=== PATIENT | male | born 1965 | race African-American/Black ===

== ENCOUNTER 2017-07-25 15:33 | Emergency (ER) | payer BC, OTHER ==
[2017-07-25 15:38] VITALS: BP 165/82; PULSE 87; RESP 12; TEMP 98.7; O2SAT 96
[2017-07-25 17:56] LABS: BACTERIA, URINE MOD /hpf; BILIRUBIN, URINE NEG (NEG); BLOOD, URINE NEG (NEG); GLUCOSE,URINE NEG (NEG); KETONE, URINE NEG (NEG); MUCUS URINE FEW /lpf (OCC); NITRITE,URINE NEG (NEG); PH, URINE 6.5 (5.0-8.5); SQUAMOUS EPITHELIAL CELL URINE <1 /hpf (0-5); URINE COLOR YELLOW (YELLW/STRAW); URINE LEUKOCYTE ESTERASE LARGE (NEG); WHITE BLOOD CELL CLUMPS RARE
[2017-07-25] MEDS ORDERED: TAMS5CAP PO (18:55)
[2017-07-25] MEDS ORDERED: CIPR-9 PO (18:55)
--- NOTE | 2017-07-25 18:57 | PD ---
HPI Chief Complaint: Complaint Time Seen by Provider: 18:24 Travel History International Travel<30 days: No Contact w/Intl Traveler<30days: No Traveled to known affect area: No History of Present Illness HPI 52-year-old male patient presents emergency department for evaluation of urinary hesitancy. Patient states the symptoms have been persistent for a couple months. Patient states when he drinks water the symptoms are significantly decreased wall when he drinks soda that exacerbates the symptoms. Patient denies any burning, discharge, fevers, chills, flank pain. Patient denies any hematuria. Patient doesn't have a primary care at this time but in the past he has been treated for BPH. Patient denies any pain or other physiological complaints at this time. PFSH Past Surgical History Abdominal Surgery: Yes (HERNIA) Social History Alcohol Use: No Tobacco Use: No Substance Use: No Allergies-Medications (Allergen,Severity, Reaction): Coded Allergies: No Known Allergies (Unverified Adverse Reaction, Unknown, 07/25/17) Reported Meds & Prescriptions Reported Meds & Active Scripts Active Cipro (Ciprofloxacin HCl) 500 Mg Tab 500 Mg PO BID 7 Days Flomax (Tamsulosin HCl) 0.4 Mg Cap 0.4 Mg PO HS Review of Systems Except as stated in HPI: all other systems reviewed are Neg Physical Exam Narrative GENERAL: Well-nourished, well-developed 52-year-old male patient in no acute distress. Nontoxic appearing. SKIN: Focused skin assessment warm/dry. HEAD: Normocephalic. Traumatic. EYES: No scleral icterus. No injection or drainage. NECK: Supple, trachea midline. No JVD or lymphadenopathy. CARDIOVASCULAR: Regular rate and rhythm without murmurs, gallops, or rubs. RESPIRATORY: Breath sounds equal bilaterally. No accessory muscle use. GASTROINTESTINAL: Abdomen soft, non-tender, nondistended. BACK: Nontender without obvious deformity. No CVA tenderness. Data Data Last Documented VS Vital Signs Date Time Temp Pulse Resp B/P (MAP) Pulse Ox O2 Delivery O2 Flow Rate FiO2 07/25/17 19:19 07/25/17 15:38 98.7 87 12 96 Orders Orders Urinalysis - C+S If Indicated (07/25/17 15:42) Urine Culture (07/25/17 16:10) Ed Discharge Order (07/25/17 18:57) Labs Laboratory Tests Test 07/25/17 16:10 Urine Color YELLOW Urine Turbidity HAZY Urine pH 6.5 Urine Specific [place] 1.025 Urine Protein TRACE mg/dL Urine Glucose (UA) NEG mg/dL Urine Ketones NEG mg/dL Urine Occult Blood NEG Urine Nitrite NEG Urine Bilirubin NEG Urine Urobilinogen 8.0 MG/DL Urine Leukocyte Esterase LARGE Urine RBC 6 /hpf Urine WBC 59 /hpf Urine WBC Clumps RARE Urine Squamous Epithelial Cells <1 /hpf Urine Bacteria MOD /hpf Urine Mucus FEW /lpf Microscopic Urinalysis Comment CULTURE INDICATED MDM Medical Decision Making Medical Screen Exam Complete: Yes Emergency Medical Condition: Yes Differential Diagnosis Differential diagnoses include but not limited to acute urinary retention, stricture of the urethra, BPH, UTI Narrative Course UA is positive for urinary tract infection with large amounts of WBCs, bacteria and esterase. Patient assessed and abdomen flat, soft and nontender. There is no signs of acute bladder retention at this time. Patient states he has cut out soda which is significantly decreased the urinary hesitancy. Patient is treated with Cipro for urinary tract infection. Patient is instructed that medication is free at [facility]. Patient discharged home with instructions to return the emergency Department with any worsening condition but otherwise avoid soda and drink plenty of water, urinate when the urge presents, try not to hold the urine which increases the risk for UTI. Laboratory Tests Test 07/25/17 16:10 Urine Color YELLOW Urine Turbidity HAZY Urine pH 6.5 Urine Specific [place] 1.025 Urine Protein TRACE mg/dL Urine Glucose (UA) NEG mg/dL Urine Ketones NEG mg/dL Urine Occult Blood NEG Urine Nitrite NEG Urine Bilirubin NEG Urine Urobilinogen 8.0 MG/DL Urine Leukocyte Esterase LARGE Urine RBC 6 /hpf Urine WBC 59 /hpf Urine WBC Clumps RARE Urine Squamous Epithelial Cells <1 /hpf Urine Bacteria MOD /hpf Urine Mucus FEW /lpf Microscopic Urinalysis Comment CULTURE INDICATED Diagnosis Primary Impression: UTI (urinary tract infection) Qualified Codes: N39.0 - Urinary tract infection, site not specified; R31.9 - Hematuria, unspecified Referrals: Primary Care Physician Urologist Patient Instructions: Benign Prostatic Hypertrophy (DC), General Instructions, Urinary Tract Infection in Men (ED) Additional Instructions: Please return to emergency department if your symptoms return or worsen. Follow up with your primary care provider. Follow-up with urologist Take medications as prescribed. Stay hydrated, drink enough water. Alternate ibuprofen and Tylenol as stated for pain or fevers. Med/Other Pt SpecificInfo: Prescription(s) given Scripts Ciprofloxacin (Cipro) 500 Mg Tab 500 MG PO BID for Infection for 7 Days, #14 TAB 0 Refills Prov: Jeanine Esteban 07/25/17 Tamsulosin (Flomax) 0.4 Mg Cap 0.4 MG PO HS for Manage Prostate Problems, #30 CAP 0 Refills Prov: Jeanine Esteban 07/25/17 Disposition: 01 DISCHARGE HOME Condition: Stable Jeanine Esteban Jul 25, 2017 18:57
== END 2017-07-25 19:24 | disposition home or self-care (01) ==
LOC: NEPK 15:33
DX: N39.0 Urinary tract infection, site not specified (principal); R31.9 Hematuria, unspecified
CPT/HCPCS: 81001; 86403; 87086; 99284

== ENCOUNTER 2017-08-12 08:22 | Observation (INO) | payer OTHER ==
[~2017-08-12] VITALS: Ht 177.8 cm; Wt 87.0 kg
[~2017-08-12 08:22] MED LIST: CIPR-9 PO; TAMS5CAP PO
[2017-08-12 08:29] VITALS: BP 164/80; PULSE 102; RESP 17; TEMP 98.2; O2SAT 100
--- NOTE | 2017-08-12 09:12 | PD ---
HPI Chief Complaint: Complaint Time Seen by Provider: 08:51 Travel History International Travel<30 days: No Contact w/Intl Traveler<30days: No Traveled to known affect area: No History of Present Illness HPI This is a 52-year-old male who reports a history of BPH. He is complaining of urinary hesitancy. He reports that he had this issue 2-3 years ago and it eventually improved. He reports that his symptoms have gradually started back up over the past 3-4 months. He was prescribed ciprofloxacin on July 25 for urinary tract infection. He was also prescribed Flomax which he started 3 days ago. He continues to have urinary hesitancy and this is what prompted evaluation. He was hoping that he could be prescribed a "stronger" medication for this symptom. Denies urethral discharge, dysuria, abdominal pain, flank pain, fevers, chills. He is sexually active with one partner. He has no other complaints at this time. PFSH Past Surgical History Abdominal Surgery: Yes (HERNIA) Social History Alcohol Use: No Tobacco Use: No Substance Use: No Allergies-Medications (Allergen,Severity, Reaction): Coded Allergies: No Known Allergies (Unverified Adverse Reaction, Unknown, 08/12/17) Reported Meds & Prescriptions Reported Meds & Active Scripts Active Hydrochlorothiazide 25 Mg Tab 25 Mg PO DAILY Flomax (Tamsulosin HCl) 0.4 Mg Cap 0.4 Mg PO HS Cipro (Ciprofloxacin HCl) 500 Mg Tab 500 Mg PO BID 7 Days Review of Systems Except as stated in HPI: all other systems reviewed are Neg Physical Exam Narrative GENERAL: Well-developed well-nourished male in no acute distress SKIN: Warm and dry. HEAD: Atraumatic. Normocephalic. EYES: Pupils equal and round. No scleral icterus. No injection or drainage. ENT: No nasal bleeding or discharge. Mucous membranes pink and moist. NECK: Trachea midline. No JVD. CARDIOVASCULAR: Regular rate and rhythm. No murmur appreciated. RESPIRATORY: No accessory muscle use. Clear to auscultation. Breath sounds equal bilaterally. GASTROINTESTINAL: Abdomen soft, non-tender, nondistended. Hepatic and splenic margins not palpable. Rectal examination reveals no obvious abnormality of the prostate, no prostate tenderness. MUSCULOSKELETAL: No obvious deformities. No clubbing. No cyanosis. No edema. NEUROLOGICAL: Awake and alert. No obvious cranial nerve deficits. Motor grossly within normal limits. Normal speech. PSYCHIATRIC: Appropriate mood and affect; insight and judgment normal. Data Data Last Documented VS Vital Signs Date Time Temp Pulse Resp B/P (MAP) Pulse Ox O2 Delivery O2 Flow Rate FiO2 08/12/17 12:05 72 18 152/79 (103) 100 Room Air 08/12/17 08:29 98.2 Orders Orders Urinalysis - C+S If Indicated (08/12/17 09:05) Morphine Inj (Morphine Inj) (08/12/17 10:45) Ondansetron Inj (Zofran Inj) (08/12/17 10:45) Lidocaine 2% Jelly (Xylocaine 2% Jelly) (08/12/17 10:45) Lidocaine 2% Jelly (Xylocaine 2% Jelly) (08/12/17 10:45) Morphine Inj (Morphine Inj) (08/12/17 10:45) Morphine Inj (Morphine Inj) (08/12/17 10:43) Morphine Inj (Morphine Inj) (08/12/17 10:45) Complete Blood Count With Diff (08/12/17 12:20) Basic Metabolic Panel (Bmp) (08/12/17 12:20) Act Partial Throm Time (Ptt) (08/12/17 12:20) Prothrombin Time / Inr (Pt) (08/12/17 12:20) Diet Npo (08/12/17 Lunch) Consent (08/12/17 12:26) Electrocardiogram (08/12/17 ) Consult Urology (08/12/17 ) Place In Observation (08/12/17 ) Admit Order (Ed Use Only) (08/12/17 13:03) Code Status (08/12/17 13:02) Vital Signs (Adult) Q4H (08/12/17 13:02) Activity Oob With Assistance (08/12/17 13:02) Sodium Chloride 0.9% Flush (Ns Flush) (08/12/17 13:15) Sodium Chloride 0.9% Flush (Ns Flush) (08/12/17 21:00) Acetaminophen (Tylenol) (08/12/17 13:15) Ondansetron Inj (Zofran Inj) (08/12/17 13:15) Comprehensive Metabolic Panel (08/13/17 06:00) Complete Blood Count With Diff (08/13/17 06:00) Scd Bilateral/Knee High CARRIE.BID (08/12/17 13:02) Acetaminophen (Tylenol) (08/12/17 13:15) Naloxone Inj (Narcan Inj) (08/12/17 13:15) Magnesium Hydroxide Liq (Milk Of Magnesi (08/12/17 13:15) Enalaprilat Inj (Vasotec Inj) (08/12/17 13:15) Lipid Profile (08/13/17 06:00) Hemoglobin (Hgb) A1c (08/13/17 06:00) Labs Laboratory Tests Test 08/12/17 12:55 Urine Color YELLOW Urine Turbidity CLEAR Urine pH 6.5 Urine Specific [place] 1.009 Urine Protein NEG mg/dL Urine Glucose (UA) NEG mg/dL Urine Ketones NEG mg/dL Urine Occult Blood TRACE Urine Nitrite NEG Urine Bilirubin NEG Urine Urobilinogen LESS THAN 2.0 MG/DL Urine Leukocyte Esterase NEG Urine RBC 3 /hpf Urine WBC 4 /hpf Urine Squamous Epithelial Cells <1 /hpf Urine Bacteria RARE /hpf Urine Mucus FEW /lpf Microscopic Urinalysis Comment CULT NOT INDICATED MDM Medical Decision Making Medical Screen Exam Complete: Yes Emergency Medical Condition: Yes Medical Record Reviewed: Yes Differential Diagnosis BPH, malignancy, cystitis, prostatitis, urethral stricture Narrative Course I have reviewed this patient's records. He had similar symptoms in July 2014 and at that time he was found to have a urethral stricture which made fully catheter placement very difficult requiring urology consultation. Although this patient self reports a history of BPH, he reports minimal improvement in his urinary hesitancy over the past few days with Flomax. I'm concerned that there may be some other anatomic abnormality such as stricture contributing to his symptoms. The patient spent 2 hours in the ED with inability to urinate. He then became increasingly uncomfortable and consented to fully catheter placement. The patient was given 8 mg of morphine and copious amounts of lidocaine jelly was used. A 14 [place] coud catheter was utilized by the nurse and was unsuccessful and the patient had significant amount of pain during the procedure. Bladder scan reveals 800 mL of urine. I discussed with Dr. Hickey the urologist on-call who evaluated the patient at bedside and unfortunately the patient feels too uncomfortable to attempt a bedside Yang catheter placement again. Therefore Dr. Hickey plans on taking the patient to the OR this evening. The patient will be admitted for observation. 1600: Notified of the patient is now urinating with a post void residual of [address] Hickey spoke to Dr. Machado and has cleared the patient for discharge and would like him to follow up as an outpatient. I informed Dr. Adams who will discharge the patient. A mandatory outpatient referral has been placed for urology follow-up. Diagnosis Primary Impression: Acute urinary retention Admitting Information Admitting Physician Requests: Observation Referrals: Rick Hickey MD 3 days Scripts Hydrochlorothiazide (Hydrochlorothiazide) 25 Mg Tab 25 MG PO DAILY for Blood Pressure Management, #30 TAB 11 Refills Prov: Ryland Adams MD 08/12/17 Tamsulosin (Flomax) 0.4 Mg Cap 0.4 MG PO HS for Manage Prostate Problems, #30 CAP 11 Refills Prov: Ryland Adams MD 08/12/17 Roldan Reeder Aug 12, 2017 09:12
[2017-08-12] MEDS ORDERED: MORPHINE SULFATE 8 MG/ML INJ ONE (10:43)
[2017-08-12] MEDS ORDERED: MORPHINE SULFATE 2 MG/ML INJ IV PUSH ONE ×3 (10:45)
[2017-08-12] MEDS ORDERED: LIDOCAINE 2% JELLY 5 ML TUBE TOPICAL ONE (10:45)
[2017-08-12] MEDS ORDERED: ONDANSETRON HCL 4 MG/2 ML VIAL IV PUSH ONE (10:45)
[2017-08-12] MEDS ORDERED: LIDOCAINE 2% JELLY 30 ML TUBE TOPICAL ONE (10:45)
[2017-08-12 12:05] VITALS: BP 152/79; PULSE 72; RESP 18; O2SAT 100
--- NOTE | 2017-08-12 12:26 | PD.CONS ---
[facility] Service Urology Consult Requested By Reason for Consult Urinary retention, h/o urethral stricture. Primary Care Physician No Primary Care Physician Diagnosis: History of Present Illness 52 yo male h/o BPH, urethral stricture presents with lower abdominal pain, dribbling, inability to empty his bladder. He was able to void a small amount this morning but he still "feels full". He has progressively voided small amounts over past several days. PVR 718 ml. A similar situation happened to him [address] Hairston to dilate a stricture, pass a catheter at the bedside. He has not had any issues up until recently. He has been on Flomax in the past. Denies fevers, chills, nausea, vomiting, flank pain. Denies h/o kidney stones. Several attempts were made to pass a catheter in ER but unsuccessful. Review of Systems Gastrointestinal: COMPLAINS OF: Abdominal pain Genitourinary: COMPLAINS OF: Urinary incontinence Except as stated in HPI: all other systems reviewed are Neg Past Family Social History Past Medical History BPH Past Surgical History urethral dilation Reported Medications Flomax Allergies: Coded Allergies: No Known Allergies (Unverified Adverse Reaction, Unknown, 08/12/17) Family History Denies urolithiasis, malignancies. Social History Denies tobacco, alcohol, illicit drugs Physical Exam Vital Signs Date Time Temp Pulse Resp B/P (MAP) Pulse Ox O2 Delivery O2 Flow Rate FiO2 08/12/17 08:29 98.2 102 17 164/80 (108) 100 Physical Exam GENERAL: This is a well-nourished, well-developed patient, in no apparent distress. SKIN: No rashes, ecchymoses or lesions. Cool and dry. HEAD: Atraumatic. Normocephalic. No temporal or scalp tenderness. EYES: Pupils equal round and reactive. Extraocular motions intact. No scleral icterus. No injection or drainage. ENT: Nose without bleeding, purulent drainage or septal hematoma. Throat without erythema, tonsillar hypertrophy or exudate. Uvula midline. Airway patent. NECK: Trachea midline. No JVD or lymphadenopathy. Supple, nontender, no meningeal signs. CARDIOVASCULAR: Regular rate and rhythm without murmurs, gallops, or rubs. RESPIRATORY: Clear to auscultation. Breath sounds equal bilaterally. No wheezes , rales, or rhonchi. GASTROINTESTINAL: Abdomen soft, non-tender, nondistended. No hepato-splenomegaly , or palpable masses. No guarding. GENITOURINARY: phallus, circumcised, testes descended bilaterally without mass MUSCULOSKELETAL: Extremities without clubbing, cyanosis, or edema. No joint tenderness, effusion, or edema noted. No calf tenderness. Negative Homans sign bilaterally. NEUROLOGICAL: Awake and alert. Cranial nerves II through XII intact. Motor and sensory grossly within normal limits. Five out of 5 muscle strength in all muscle groups. Normal speech. Assessment and Plan Assessment and Plan 52 yo male h/o BPH, urethral stricture presents with acute onset of urinary retention. -Planned to placed catheter, possible urethral dilation at bedside. However, patient adamantly refused due to how painful it was last time. He wishes to be placed under a General Anesthetic. -Keep NPO Rick Hickey MD Aug 12, 2017 12:26
[2017-08-12 13:11] LABS: BACTERIA, URINE RARE /hpf; BILIRUBIN, URINE NEG (NEG); BLOOD, URINE TRACE (NEG); GLUCOSE,URINE NEG (NEG); KETONE, URINE NEG (NEG); MUCUS URINE FEW /lpf (OCC); NITRITE,URINE NEG (NEG); PH, URINE 6.5 (5.0-8.5); SQUAMOUS EPITHELIAL CELL URINE <1 /hpf (0-5); URINE COLOR YELLOW (YELLW/STRAW); URINE LEUKOCYTE ESTERASE NEG (NEG)
[2017-08-12] MEDS ORDERED: SODIUM CHLORIDE 0.9% FLUSH 10 ML FLUSH IV FLUSH PRN (13:15)
[2017-08-12] MEDS ORDERED: NALOXONE HCL 0.4 MG/ML AMP IV PUSH PRN (13:15)
[2017-08-12] MEDS ORDERED: ONDANSETRON HCL 4 MG/2 ML VIAL IVP PRN (13:15)
[2017-08-12] MEDS ORDERED: ENALAPRILAT 2.5 MG/2 ML VIAL IV PUSH PRN (13:15)
[2017-08-12] MEDS ORDERED: ACETAMINOPHEN 325 MG TAB PO PRN ×2 (13:15)
[2017-08-12] MEDS ORDERED: MAGNESIUM HYDROXIDE SUSP 30 ML CUP PO PRN (13:15)
--- NOTE | 2017-08-12 13:34 | HHI.HP ---
[facility] Service [facility] Primary Care Physician No Primary Care Physician Admission Diagnosis urinary retention Diagnoses: (1) Acute urinary retention (2) Stricture of urethra Chief Complaint: Urinary retention Travel History International Travel<30 Days: No Contact w/Intl Traveler <30 Da: No Traveled to Known Affected Are: No History of Present Illness 52 year-old -[place] male with a history of BPH, urethral stricture presented to the ED for evaluation of acute urinary retention 4 days. Patient states, he has been voiding at least 8 times over the past 4 days however in very small amounts. Reports some pelvic pressure however denies any gross hematuria. This is a recurrent problem for patient, as he was seen back in the ED on 08/12/14 for urinary retention during which time patient underwent dilatation and placement of Yang at bedside by urology. However, this time around patient is requesting to be taking in the OR for any Yang placement by urology. He has been off his Flomax over the past 2 years. He has no other issues Review of Systems Except as stated in HPI: all other systems reviewed are Neg Past Family Social History Past Medical History BPH Past Surgical History Hernia repair Pyloric stenosis repair as an Reported Medications Patient has been off Flomax over the past 2 years Allergies: Coded Allergies: No Known Allergies (Unverified Adverse Reaction, Unknown, 08/12/17) Family History History positive for hypertension, diabetes type 2 Social History Patient denies tobacco, alcohol or illicit drug intake Physical Exam Vital Signs Vital Signs Date Time Temp Pulse Resp B/P (MAP) Pulse Ox O2 Delivery O2 Flow Rate FiO2 08/12/17 08:29 98.2 102 17 164/80 (108) 100 Physical Exam GENERAL: This is a well-nourished, well-developed patient, in no apparent distress. SKIN: No rashes, ecchymoses or lesions. Cool and dry. HEAD: Atraumatic. Normocephalic. No temporal or scalp tenderness. EYES: Pupils equal round and reactive. Extraocular motions intact. No scleral icterus. No injection or drainage. ENT: Nose without bleeding, purulent drainage or septal hematoma. Throat without erythema, tonsillar hypertrophy or exudate. Uvula midline. Airway patent. NECK: Trachea midline. No JVD or lymphadenopathy. Supple, nontender, no meningeal signs. CARDIOVASCULAR: Regular rate and rhythm without murmurs, gallops, or rubs. RESPIRATORY: Clear to auscultation. Breath sounds equal bilaterally. No wheezes , rales, or rhonchi. GASTROINTESTINAL: Abdomen soft, non-tender, nondistended. No hepato-splenomegaly , or palpable masses. No guarding. MUSCULOSKELETAL: Extremities without clubbing, cyanosis, or edema. No joint tenderness, effusion, or edema noted. No calf tenderness. Negative Homans sign bilaterally. NEUROLOGICAL: Awake and alert. Cranial nerves II through XII intact. Motor and sensory grossly within normal limits. Five out of 5 muscle strength in all muscle groups. Normal speech. Laboratory Laboratory Tests Test 08/12/17 12:55 Urine Color YELLOW Urine Turbidity CLEAR Urine pH 6.5 Urine Specific [place] 1.009 Urine Protein NEG Urine Glucose (UA) NEG Urine Ketones NEG Urine Occult Blood TRACE Urine Nitrite NEG Urine Bilirubin NEG Urine Urobilinogen LESS THAN 2.0 Urine Leukocyte Esterase NEG Urine RBC 3 Urine WBC 4 Urine Squamous Epithelial Cells <1 Urine Bacteria RARE Urine Mucus FEW Microscopic Urinalysis Comment CULT NOT INDICATED Septic Shock Reassessment Septic shock perfusion: reassessment completed Caprini VTE Risk Assessment Caprini VTE Risk Assessment: No/Low Risk (score <= 1) Caprini Risk Assessment Model Point Value = 1 Point Value = 2 Point Value = 3 Point Value = 5 Age 41-60 Minor surgery BMI > 25 kg/m2 Swollen legs Varicose veins or History of unexplained or recurrent spontaneous Oral contraceptives or hormone replacement Sepsis (< 1 month) Serious lung disease, including pneumonia (< 1 month) Abnormal pulmonary function Acute myocardial infarction Congestive heart failure (< 1 month) History of inflammatory bowel disease Medical patient at bed rest Age 61-74 Arthroscopic surgery Major open surgery (> 45 min) Laparoscopic surgery (> 45 min) Malignancy Confined to bed (> 72 hours) Immobilizing plaster cast Central venous access Age >= 75 History of VTE Family history of VTE Factor V Leiden Prothrombin [id number] Lupus anticoagulant Anticardiolipin antibodies Elevated serum homocysteine Heparin-induced thrombocytopenia Other congenital or acquired thrombophilia Stroke (< 1 month) Elective arthroplasty Hip, pelvis, or leg fracture Acute spinal cord injury (< 1 month) Prophylaxis Regimen Total Risk Factor Score Risk Level Prophylaxis Regimen 0-1 Low Early ambulation 2 Moderate Order ONE of the following: *Sequential Compression Device (SCD) *Heparin 5000 units SQ BID 3-4 Higher Order ONE of the following medications: *Heparin 5000 units SQ TID *Enoxaparin/Lovenox 40 mg SQ daily (WT < 150 kg, CrCl > 30 mL/min) *Enoxaparin/Lovenox 30 mg SQ daily (WT < 150 kg, CrCl > 10-29 mL/min) *Enoxaparin/Lovenox 30 mg SQ BID (WT < 150 kg, CrCl > 30 mL/min) AND/OR *Sequential Compression Device (SCD) 5 or more Highest Order ONE of the following medications: *Heparin 5000 units SQ TID (Preferred with Epidurals) *Enoxaparin/Lovenox 40 mg SQ daily (WT < 150 kg, CrCl > 30 mL/min) *Enoxaparin/Lovenox 30 mg SQ daily (WT < 150 kg, CrCl > 10-29 mL/min) *Enoxaparin/Lovenox 30 mg SQ BID (WT < 150 kg, CrCl > 30 mL/min) AND *Sequential Compression Device (SCD) Assessment and Plan Problem List: (1) Acute urinary retention ICD Code: R33.8 - Acute urinary retention Status: Resolved (2) Stricture of urethra ICD Code: N35.9 - Stricture of urethra Status: Chronic Assessment and Plan 52-year-old man with Acute urinary retention Strictures or urethra Appreciate input from urology and plan for +/-cystoscopy with dilatation and placement of Yang in the OR today Currently nothing by mouth UA pending Patient will need a prescription for Flomax on discharge Elevated BP Undiagnosed hypertension? Start patient on Hydrochlorothiazide 5 mg daily pending BMP Check lipid profile, hemoglobin A1c and treat accordingly DVT prophylaxis: Low risk for VTE, encourage ambulation Likely discharge in a.m. Code Status Full code Discussed Condition With Patient, ED Ryland Lovelace MD Aug 12, 2017 13:33
[2017-08-12 14:21] LABS: AUTOMATED NEUTROPHIL # 4.2 TH/MM3 (1.8-7.7); BASOPHIL % 0.7 % (0.0-2.0); EOSINOPHIL % 0.2 % (0.0-4.0); HEMATOCRIT 37.6 % (39.0-51.0); LYMPH % 14.5 % (9.0-44.0); LYMPHOCYTE # 0.8 TH/MM3 (1.0-4.8); MEAN CELL VOLUME 84.6 FL (80.0-100.0); MEAN CORPUSCULAR HEMOGLOBIN 29.2 PG (27.0-34.0); MEAN CORPUSCULAR HGB CONC 34.4 % (32.0-36.0); MEAN PLATELET VOLUME 9.1 FL (7.0-11.0); MONO % 6.6 % (0.0-8.0); MONOCYTE # 0.4 TH/MM3 (0-0.9); PLATELET COUNT 282 TH/MM3 (150-450); RED BLOOD COUNT 4.44 MIL/MM3 (4.50-5.90); WHITE BLOOD COUNT 5.4 TH/MM3 (4.0-11.0)
[2017-08-12 14:28] LABS: PROTHROMBIN TIME - PATIENT 10.4 SEC (9.8-11.6)
[2017-08-12 14:39] LABS: BICARBONATE 29.8 MEQ/L (21.0-32.0); CALCIUM 8.8 MG/DL (8.5-10.1); CREATININE 0.96 MG/DL (0.60-1.30)
[2017-08-12 15:33] VITALS: BP 164/90; PULSE 78; RESP 18; O2SAT 99
[2017-08-12] MEDS ORDERED: HYDR25TA5 PO (16:06)
[2017-08-12] MEDS ORDERED: TAMS5CAP PO (16:06)
--- NOTE | 2017-08-12 16:08 | HHI.PR ---
Addendum to Inpatient Note Addendum Reason: Additional Documentation Additional Information patient now with urinary stream; he has been cleared by urology for discharge however will need outpatient follow up Will discharge the patient home Discharge patient to home Condition on discharge: Improved Regular Diet as tolerated Ad Stephanie activity Rx written:see EMR Follow-up with primary care physician in 1 week Urology Ryland Godfrey MD Aug 12, 2017 16:08
[2017-08-12] MEDS ORDERED: SODIUM CHLORIDE 0.9% FLUSH 10 ML FLUSH IV FLUSH SCH (21:00)
[2017-08-13] MEDS ORDERED: HYDROCHLOROTHIAZIDE 25 MG TAB PO SCH (09:00)
== END 2017-08-12 17:50 | disposition home or self-care (01) ==
LOC: NEPD 08:22 → NEDA 13:04
PROVIDERS: ADMIT Hospitalist; ATTEND Hospitalist
DX: R33.8 Other retention of urine (principal); N35.9 Urethral stricture, unspecified; R03.0 Elevated blood-pressure reading, without diagnosis of hypertension; R10.30 Lower abdominal pain, unspecified; R39.11 Hesitancy of micturition; N40.1 Benign prostatic hyperplasia with lower urinary tract symptoms; Z79.899 Other long term (current) drug therapy
CPT/HCPCS: 51703; 80048; 81001; 85025; 85610; 85730; 96374; 99285; G0378; J2270